=== PATIENT | female | born 1985 | race Caucasian/White ===

== ENCOUNTER → 2016-10-04 | Outpatient (CLI) | payer BC ==
--- NOTE | 2016-10-04 14:37 | US ---
EXAMINATION TYPE: US transvaginal DATE OF EXAM: 10/04/2016 COMPARISON: NONE CLINICAL HISTORY: Z01.411 Encounter for gynecological examination (g; Vaginal bleeding on pelvic exam 09-23-16; TECHNIQUE: Transvaginal (TV) Date of LMP: 09/10/2016 EXAM MEASUREMENTS: Uterus: 8.4 x 4.4 x 3.5 cm Endometrial Stripe: 0.9 cm Right Ovary: 2.1 x 1.4 x 1.2 cm Left Ovary: 2.0 x 2.3 x 1.2 cm 1. Uterus: Anteverted 2. Endometrium: thickness wnl for Day 25 LMP; small fluid area in LIVIA = 0.5 x 0.2 x 0.3cm, likely re lated to blood products 3. Right Ovary: small follicles are noted 4. Left Ovary: small follicles Spectral, color and waveform doppler imaging shows good arterial and venous flow within the ovaries ; there is no evidence for ovarian torsion. 5. Bilateral Adnexa: wnl 6. Posterior cul-de-sac: wnl Vaginal bleeding was noted on TV US probe after exam's completion. IMPRESSION: Unremarkable uterus, ovaries, and endometrial thickness for the phase of menses.
== END ==
LOC: RADUSWWP 12:52
PROVIDERS: ATTEND Family Medicine
DX: Z01.411 Encounter for gynecological examination (general) (routine) with abnormal findings (principal); N84.1 Polyp of cervix uteri
CPT/HCPCS: 76830